=== PATIENT | male | born 1950 | race Caucasian/White ===

== ENCOUNTER 2021-12-04 19:16 | Emergency (ER) | payer MEDICARE, BC ==
[~2021-12-04] VITALS: Ht 188 cm; Wt 109.1 kg
[2021-12-04 19:42] VITALS: BP 130/66
[2021-12-04] MEDS ORDERED: morphine IR (immed. release) 30mg tablet PO PRN (20:45)
[2021-12-04] MEDS ORDERED: MORP30TA PO (22:23)
== END 2021-12-04 22:31 | disposition home or self-care (01) ==
LOC: ER 19:17
DX: S22.080A Wedge compression fracture of T11-T12 vertebra, initial encounter for closed fracture (principal); E11.9 Type 2 diabetes mellitus without complications; Z79.899 Other long term (current) drug therapy; W10.8XXA Fall (on) (from) other stairs and steps, initial encounter; Y93.89 Activity, other specified; Y92.090 Kitchen in other non-institutional residence as the place of occurrence of the external cause; Y99.8 Other external cause status
CPT/HCPCS: 72100; 99283